=== PATIENT | female | born 1995 | race Caucasian/White ===

== ENCOUNTER 2018-01-04 08:02 | Emergency (ER) | payer BC ==
[2018-01-04] MEDS: predniSONE 20 MG TAB PO (08:31)
== END 2018-01-04 09:20 | disposition home or self-care (01) ==
LOC: FTE 08:02
DX: H60.92 Unspecified otitis externa, left ear (principal)
CPT/HCPCS: 99283; J7512

== ENCOUNTER 2018-10-17 03:51 | Emergency (ER) | payer BC ==
[2018-10-17] MEDS: DEXAMETHASONE 10 MG/ML 1 ML INJ IM (04:25)
[2018-10-17] MEDS: FAMOTIDINE 20 MG TAB PO (04:25)
[2018-10-17] MEDS: DIPHENHYDRAMINE 25 MG CAP PO (04:25)
== END 2018-10-17 04:30 | disposition home or self-care (01) ==
LOC: FTE 03:51
DX: L50.9 Urticaria, unspecified (principal)
CPT/HCPCS: 96372; 99284-25

== ENCOUNTER 2018-10-20 04:33 | Emergency (ER) | payer BC ==
[2018-10-20] MEDS: DIPHENHYDRAMINE 50 MG INJ IM (05:53)
[2018-10-20] MEDS: DEXAMETHASONE 10 MG/ML 1 ML INJ IM (05:54)
== END 2018-10-20 06:00 | disposition home or self-care (01) ==
LOC: FTE 04:33
DX: L50.0 Allergic urticaria (principal)
CPT/HCPCS: 96372; 99284-25; J1100

== ENCOUNTER 2019-02-04 23:47 | Emergency (ER) | payer BC | END 2019-02-05 01:14 | disposition home or self-care (01) | LOC: FTE 23:47 | DX: H66.91 Otitis media, unspecified, right ear (principal) | CPT/HCPCS: 99282 ==